=== PATIENT | male | born 1950 | race Caucasian/White ===

== ENCOUNTER → 2016-06-30 | Outpatient (REF) | payer MEDICARE ==
[~2016-06-30] MED LIST: ACET65TA; ALBU83IN INH; BABY81CH; COMBAER6 INH; COMBVENT INH; COUM1TAB PO; COUM2TAB10 PO; CYCLOBENZAPRINE PO; DUONSOL INH; EQUATE FIBER PO; LEVA500T; TESS200C; WARF10TA15 PO; XARE15TA PO
== END ==
LOC: M LAB REF 16:36
PROVIDERS: ATTEND Internal Medicine
DX: N39.0 Urinary tract infection, site not specified (principal)

== ENCOUNTER → 2016-07-17 | Outpatient (REF) | payer MEDICARE | LOC: M LAB REF 13:13 | PROVIDERS: ATTEND Internal Medicine | DX: R35.1 Nocturia (principal) ==

== ENCOUNTER → 2016-07-27 | Outpatient (CLI) | payer MEDICARE ==
--- NOTE | 2016-07-27 13:46 | REP ---
PA and lateral chest: Comparisons are the plain film PA and lateral views of 07/06/2015 and 02/14/[address] of 12/29/2011. There is chronic right upper lobe collapse. 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 The remainder of the lung crawford are clear and unchanged. Cardiac size is normal. The conor, mediastinum, and bony thorax are unremarkable otherwise. Impression: No significant interval change. Chronic collapse of the right upper lobe. Otherwise, negative PA and lateral chest. Signed by Ed Nuñez MD 07/27/2016 01:38 P
== END ==
LOC: M SMT 13:14
PROVIDERS: ATTEND Internal Medicine Pulmonary Disease
DX: E85.1 Neuropathic heredofamilial amyloidosis (principal)

== ENCOUNTER → 2018-01-09 | Outpatient (REF) | payer MEDICARE | LOC: M LAB REF 13:15 | DX: R05 Cough (principal) | CPT/HCPCS: 87205 ==

== ENCOUNTER → 2018-01-16 | Outpatient (CLI) | payer MEDICARE | LOC: M SLEEP 19:30 | DX: G47.33 Obstructive sleep apnea (adult) (pediatric) (principal) | CPT/HCPCS: 95811 ==

== ENCOUNTER 2019-03-10 15:29 | Emergency (ER) | payer MEDICARE ==
[~2019-03-10] VITALS: Ht 185.4 cm; Wt 93.8 kg
[~2019-03-10 15:29] MED LIST changes: -COUM2TAB10 PO; +COUM2TAB22 PO
[2019-03-10 17:24] LABS: BASO % 0.3 % (0.0-1.0); EOS # 0.1 10^3/uL (0.0-0.5); EOS % 2.1 % (0.0-3.0); HEMATOCRIT 43.4 % (42.0-52.0); HEMOGLOBIN 13.4 g/dl (13.5-17.5); LYMPH # 0.4 10^3/uL (1.5-5.0); LYMPH % 6.4 % (24.0-44.0); MEAN CORPUSCULAR HEMOGLOBIN 29.5 pg (27.0-33.0); MEAN CORPUSCULAR HGB CONC 30.9 g/dl (32.0-36.5); MEAN CORPUSCULAR VOLUME 95.6 fl (80.0-96.0); MONO # 0.7 10^3/uL (0.0-0.8); MONO % 10.9 % (0.0-5.0); NEUTROPHILS # 5.4 10^3/uL (1.5-8.5); PLATELET COUNT, AUTOMATED 177 10^3/uL (150-450); RED BLOOD COUNT 4.54 10^6/uL (4.30-6.10); WHITE BLOOD COUNT 6.7 10^3/uL (4.0-10.0)
[2019-03-10 17:46] LABS: ALBUMIN 4.1 GM/DL (3.2-5.2); BILIRUBIN,DIRECT 0.4 MG/DL (0.0-0.2); BILIRUBIN,TOTAL 1.5 MG/DL (0.2-1.0); TOTAL PROTEIN 7.4 GM/DL (6.4-8.2)
[2019-03-10] MEDS ORDERED: IPRA0.00 (19:53)
[2019-03-10] MEDS ORDERED: PROAAER10 (19:53)
[2019-03-10] MEDS ORDERED: TAMS1CAP17 PO (19:53)
[2019-03-10] MEDS ORDERED: MIRA3350 PO (19:53)
[2019-03-10] MEDS ORDERED: CVS1CAP2 PO (19:53)
[2019-03-10] MEDS ORDERED: [UNRECOGNIZED DRUG - CODE] PO (19:54)
--- NOTE | 2019-03-10 23:07 | REPVR ---
PROCEDURE INFORMATION: Exam: CT Abdomen And Pelvis Without Contrast Exam date and time: 03/10/2019 9:45 PM Age: 68 years old Clinical indication: Abdominal pain; Generalized; Additional info: Right flank/abd pain; R/O stone TECHNIQUE: Imaging protocol: Computed tomography of the abdomen and pelvis without contrast. Radiation optimization: All CT scans at this facility use at least one of these dose optimization techniques: automated exposure control; mA and/or kV adjustment per patient size (includes targeted exams where dose is matched to clinical indication); or iterative reconstruction. COMPARISON: No relevant prior studies available. FINDINGS: Limitations: Study is limited by the absence of contrast. Liver: Right hepatic lobe 1.4 cm cyst. Small, less than 5 mm, liver hypodensity. Highly likely to be benign and does not require follow-up imaging or biopsy per ACR. Gallbladder and bile ducts: Normal. No calcified stones. No ductal dilation. Pancreas: Normal. No ductal dilation. Spleen: Normal. No splenomegaly. Adrenals: Normal. No mass. Kidneys and ureters: Moderate bilateral hydroureter and hydronephrosis, likely from reflux given the bladder distension. Along the course of the left ureter there is a lobulated fluid density lesion measuring 4.2 x 4 x 5.5 cm. 2.7 cm right renal cyst. Stomach and bowel: Excess stool in the colon and gas and distention of the small bowel. Appendix: No evidence of appendicitis. Intraperitoneal space: Unremarkable. No free air. No significant fluid collection. Vasculature: Unremarkable. No abdominal aortic aneurysm. Lymph nodes: Potentially a cyst, ureteral outpouching, or even lymphocele. Recommend further evaluation, significance uncertain. Bladder: Bladder distention with mild adjacent stranding, correlate with urinalysis. Reproductive: 6.9 cm, enlarged prostate gland indenting the bladder. Bones/joints: Unremarkable. No acute fracture. Soft tissues: Moderate fat protruding right inguinal hernia. Other findings: Minimal stranding in the pelvis. IMPRESSION: 1. Bladder distention with mild adjacent stranding, correlate with urinalysis. 2. Moderate bilateral hydroureter and hydronephrosis, likely from reflux given the bladder distension. 3. Along the course of the left ureter there is a lobulated fluid density lesion measuring 4.2 x 4 x 5.5 cm. Potentially a cyst, ureteral outpouching, or even lymphocele. Recommend further evaluation, significance uncertain. 4. Excess stool in the colon and gas and distention of the small bowel. Family noticed in terms of herself and her own identity Electronically signed by: Yvon Bowen On 03/10/2019 23:07:36 PM
[2019-03-11] MEDS ORDERED: LIDOCAINE 2% 5ML JELLY UROJET TOP ONE
[2019-03-11 00:18] VITALS: BP 179/84
--- NOTE | 2019-03-11 08:43 | ED PDOC ---
Post-Departure Follow-Up dr magaña faxed formal report of ct abd/p for fu Chelly Killian MD Mar 11, 2019 08:43
== END 2019-03-11 01:03 | disposition home or self-care (01) ==
LOC: M ED 15:29
DX: K59.00 Constipation, unspecified (principal); R33.9 Retention of urine, unspecified; N13.30 Unspecified hydronephrosis; N28.89 Other specified disorders of kidney and ureter; R68.83 Chills (without fever); Z86.718 Personal history of other venous thrombosis and embolism; Z87.09 Personal history of other diseases of the respiratory system; Z91.041 Radiographic dye allergy status; Z79.51 Long term (current) use of inhaled steroids; Z79.899 Other long term (current) drug therapy

== ENCOUNTER → 2019-04-09 | Outpatient (CLI) | payer MEDICARE ==
[~2019-04-09] MED LIST changes: +CVS1CAP2 PO; +IPRA0.00; +MIRA3350 PO; +PROAAER10; +TAMS1CAP17 PO; +[UNRECOGNIZED DRUG - CODE] PO
[2019-04-09 12:18] LABS: BLOOD UREA NITROGEN 19 MG/DL (7-18); CALCIUM LEVEL 9.5 MG/DL (8.8-10.2); CARBON DIOXIDE LEVEL 29 MEQ/L (21-32); CHLORIDE LEVEL 107 MEQ/L (98-107); CREATININE FOR GFR 0.77 MG/DL (0.70-1.30); GLOMERULAR FILTRATION RATE > 60.0 (>49); GLUCOSE, FASTING 86 MG/DL (70-100); POTASSIUM SERUM 3.8 MEQ/L (3.5-5.1); SODIUM LEVEL 141 MEQ/L (136-145)
== END ==
LOC: M LAB 11:15
PROVIDERS: ATTEND Nurse Practitioner Family
DX: N28.89 Other specified disorders of kidney and ureter (principal)

== ENCOUNTER → 2019-08-14 | Outpatient (CLI) | payer MEDICARE ==
--- NOTE | 2019-08-14 13:35 | REP ---
Clinical: Familial amyloidosis. Technique: PA and lateral. Comparison: 01/07/2018, 07/30/2017. Findings: The mediastinum and cardiac silhouette including the abnormal round contour along the right side of the mediastinum remains stable. Lung crawford are clear. No focal consolidation, effusion, or pneumothorax. Skeletal structures are intact. Impression: Stable chest x-ray. No acute cardiopulmonary process appreciated. Electronically Signed by Fer Rees MD 08/14/2019 01:26 P
== END ==
LOC: M RAD 13:08
PROVIDERS: ATTEND Internal Medicine Pulmonary Disease
DX: E85.1 Neuropathic heredofamilial amyloidosis (principal)

== ENCOUNTER 2020-08-21 14:42 | Emergency (ER) | payer MEDICARE ==
[~2020-08-21] VITALS: Ht 185.4 cm; Wt 88.9 kg
[2020-08-21 14:43] VITALS: BP 156/72
--- NOTE | 2020-08-21 15:11 | REP ---
INDICATION: Head injury COMPARISON: 07/17/2012 TECHNIQUE: Axial noncontrast images from the skull base to the vertex with coronal reformations. This CT examination was performed using the following dose reduction techniques: Automated exposure control, adjustment of mA and/or kv according to the patient's size, and use of iterative reconstruction technique. FINDINGS: The ventricles, sulci, and cisterns are normal in position and appearance. Kurtz-white differentiation is maintained. No acute intracranial hemorrhage, mass/mass effect, pathology or trauma/injury. No evidence for acute infarction. No extra-axial fluid collection. Calvarium is intact. High density material fills the visualized left maxillary sinus. IMPRESSION: 1. No evidence for acute intracranial pathology or trauma/injury. 2. High density material within the visualized left maxillary sinus is nonspecific. Differential diagnosis includes but is not limited to fungal sinus disease and hemorrhage related to occult injury. The visualized adjacent osseous structures appear intact. <Electronically signed by Fer Rees > 08/21/20 [id number]
--- NOTE | 2020-08-22 07:31 | ED PDOC ---
Post-Departure Follow-Up radiology report faxed to Angelina Valencia MD Aug 22, 2020 07:31
== END 2020-08-21 17:01 | disposition home or self-care (01) ==
LOC: M ED 14:42
DX: S00.03XA Contusion of scalp, initial encounter (principal); W21.04XA Struck by golf ball, initial encounter; Y92.9 Unspecified place or not applicable; Y93.53 Activity, golf; Y99.9 Unspecified external cause status

== ENCOUNTER → 2020-08-23 | Outpatient (CLI) | payer MEDICARE ==
--- NOTE | 2020-08-23 15:33 | REP ---
INDICATION: ORGAN LIMITED AMYLOIDOSIS. COMPARISON: Multiple latest 08/14/2019 TECHNIQUE: PA and lateral FINDINGS: Cardiomediastinal silhouette lung crawford are unchanged. Right paratracheal calcifications status quo. Right low-density paratracheal fullness status quo for many years. No acute patchy parenchymal opacities or pleural effusions have developed there is no change in the osseous structures. IMPRESSION: Stable appearing chronic changes <Electronically signed by Stephen Hoff > 08/23/20 [id number]
== END ==
LOC: M WUC 15:04
PROVIDERS: ATTEND Internal Medicine Pulmonary Disease
DX: E85.4 Organ-limited amyloidosis (principal)

== ENCOUNTER → 2021-08-29 | Outpatient (CLI) | payer MEDICARE ==
[~2021-08-29] MED LIST changes: +ALBU2.5V10 INH; -ALBU83IN INH
== END ==
LOC: M WUC 15:15
PROVIDERS: ATTEND Internal Medicine Pulmonary Disease
DX: E85.4 Organ-limited amyloidosis (principal); J98.11 Atelectasis

== ENCOUNTER 2022-06-23 20:44 | Emergency (ER) | payer MEDICARE ==
[~2022-06-23] VITALS: Ht 185.4 cm; Wt 90.4 kg
[2022-06-23 22:02] LABS: BASO # 0.1 10^3/uL (0.0-0.2); BASO % 0.6 % (0.0-1.0); EOS # 0.1 10^3/uL (0.0-0.5); HEMATOCRIT 37.5 % (42.0-52.0); HEMOGLOBIN 12.1 g/dl (13.5-17.5); LYMPH # 0.7 10^3/uL (1.5-5.0); LYMPH % 7.6 % (24.0-44.0); MEAN CORPUSCULAR HGB CONC 32.3 g/dl (32.0-36.5); MEAN CORPUSCULAR VOLUME 93.1 fl (80.0-96.0); MONO # 0.7 10^3/uL (0.0-0.8); NEUTROPHILS # 7.2 10^3/uL (1.5-8.5); NEUTROPHILS % 82.6 % (36.0-66.0); PLATELET COUNT, AUTOMATED 201 10^3/uL (150-450); RED BLOOD COUNT 4.03 10^6/uL (4.30-6.10); WHITE BLOOD COUNT 8.7 10^3/uL (4.0-10.0)
[2022-06-23 22:12] LABS: INR 1.18; PROTHROMBIN TIME 15.3 SECONDS (12.5-14.5)
[2022-06-23 22:13] LABS: PARTIAL THROMBOPLASTIN TIME 29.6 SECONDS (24.8-34.2)
[2022-06-23] MEDS ORDERED: LIDOCAINE 2% 5ML JELLY UROJET TOP ONE (23:45)
[2022-06-24 00:07] LABS: LIPASE 25 U/L (12-53)
[2022-06-24 00:10] LABS: ALBUMIN 3.8 G/DL (3.2-5.2); ALKALINE PHOSPHATASE 70 U/L (46-116); ALT/SGPT 26 U/L (7.0-40); AST/SGOT 23 U/L (<34); BILIRUBIN,DIRECT 0.4 MG/DL (<0.4); BILIRUBIN,TOTAL 1.1 MG/DL (0.3-1.2); BLOOD UREA NITROGEN 18 MG/DL (9-23); CALCIUM LEVEL 9.1 MG/DL (8.3-10.6); CARBON DIOXIDE LEVEL 26 MMOL/L (20-31); CHLORIDE LEVEL 97 MMOL/L (98-107); CREATININE FOR GFR 0.69 MG/DL (0.70-1.30); GLOMERULAR FILTRATION RATE > 60.0 (>49); GLUCOSE, FASTING 124 MG/DL (74-106); POTASSIUM SERUM 3.9 MMOL/L (3.5-5.1); SODIUM LEVEL 129 MMOL/L (136-145); TOTAL PROTEIN 7.3 G/DL (5.7-8.2)
[2022-06-24 02:00] VITALS: BP 134/65
== END 2022-06-24 02:23 | disposition home or self-care (01) ==
LOC: M ED 20:44
DX: T83.091A Other mechanical complication of indwelling urethral catheter, initial encounter (principal); R33.9 Retention of urine, unspecified; R31.9 Hematuria, unspecified; K58.9 Irritable bowel syndrome, unspecified; Z86.718 Personal history of other venous thrombosis and embolism; Z91.041 Radiographic dye allergy status; Z79.52 Long term (current) use of systemic steroids; Z79.899 Other long term (current) drug therapy

== ENCOUNTER → 2022-09-05 | Outpatient (CLI) | payer MEDICARE | LOC: M WUC 10:12 | PROVIDERS: ATTEND Internal Medicine Pulmonary Disease | DX: E85.4 Organ-limited amyloidosis (principal); J98.11 Atelectasis ==

== ENCOUNTER 2022-11-12 13:16 | Emergency (ER) | payer MEDICARE ==
[~2022-11-12] VITALS: Ht 185.4 cm; Wt 88.0 kg
[2022-11-12] MEDS ORDERED: ALBU8.5H (13:32)
[2022-11-12] MEDS ORDERED: LIDOCAINE 2% 5ML JELLY UROJET TOP ONE (14:50)
[2022-11-12] MEDS ORDERED: CIPR-249 PO (16:14)
[2022-11-12] MEDS ORDERED: CIPROFLOXACIN 500MG TABLET PO ONE (16:15)
[2022-11-12 16:20] VITALS: BP 128/61; TEMP 97.6; O2SAT 94
== END 2022-11-12 16:56 | disposition home or self-care (01) ==
LOC: M ED 13:16
DX: T83.091A Other mechanical complication of indwelling urethral catheter, initial encounter (principal); N39.0 Urinary tract infection, site not specified; K58.9 Irritable bowel syndrome, unspecified; Z91.041 Radiographic dye allergy status; Z79.01 Long term (current) use of anticoagulants; Z79.2 Long term (current) use of antibiotics; Z79.52 Long term (current) use of systemic steroids; Z79.899 Other long term (current) drug therapy

== ENCOUNTER 2022-12-19 12:12 | Emergency (ER) | payer MEDICARE ==
[~2022-12-19] VITALS: Ht 185.4 cm; Wt 85.6 kg
[~2022-12-19 12:12] MED LIST changes: +ALBU8.5H; +CIPR-249 PO
[2022-12-19] MEDS ORDERED: LIDOCAINE 2% 5ML JELLY UROJET TOP ONE (15:40)
[2022-12-19 16:57] VITALS: BP 135/66; TEMP 97.6; O2SAT 96
[2022-12-19] MEDS ORDERED: LEVO1TAB40 PO (17:00)
== END 2022-12-19 17:15 | disposition home or self-care (01) ==
LOC: M ED 12:12
DX: T83.091A Other mechanical complication of indwelling urethral catheter, initial encounter (principal); N39.0 Urinary tract infection, site not specified; Z79.52 Long term (current) use of systemic steroids; Z79.2 Long term (current) use of antibiotics; Z79.83 Long term (current) use of bisphosphonates; Z79.899 Other long term (current) drug therapy; Z91.041 Radiographic dye allergy status

== ENCOUNTER 2023-02-11 19:52 | Emergency (ER) | payer MEDICARE ==
[~2023-02-11] VITALS: Ht 186.1 cm; Wt 86.5 kg
[~2023-02-11 19:52] MED LIST changes: +LEVO1TAB40 PO
[2023-02-11] MEDS ORDERED: DUTASTERIDE (20:03)
[2023-02-11 22:23] VITALS: BP 143/83; TEMP 98.3; O2SAT 98
== END 2023-02-11 22:24 | disposition home or self-care (01) ==
LOC: M ED 19:52
DX: T83.091A Other mechanical complication of indwelling urethral catheter, initial encounter (principal); N40.0 Benign prostatic hyperplasia without lower urinary tract symptoms; Z91.041 Radiographic dye allergy status; Z79.52 Long term (current) use of systemic steroids; Z79.899 Other long term (current) drug therapy

== ENCOUNTER 2023-02-26 14:56 | Emergency (ER) | payer MEDICARE ==
[~2023-02-26] VITALS: Ht 185.4 cm; Wt 86.0 kg
[~2023-02-26 14:56] MED LIST changes: +DUTASTERIDE
[2023-02-26] MEDS ORDERED: DUTASTERIDE (15:16)
[2023-02-26] MEDS ORDERED: IPRATROPIUM 0.5MG/ALBUTEROL 2.5MG INH SOL UD 3ML (DUONEB) NEB ONE (17:50)
[2023-02-26 18:40] LABS: BASO # 0.1 10^3/uL (0.0-0.2); EOS # 0.2 10^3/uL (0.0-0.5); EOS % 3.1 % (0.0-3.0); HEMATOCRIT 40.3 % (42.0-52.0); HEMOGLOBIN 12.5 g/dl (13.5-17.5); LYMPH # 0.9 10^3/uL (1.5-5.0); LYMPH % 15.4 % (24.0-44.0); MEAN CORPUSCULAR VOLUME 96.6 fl (80.0-96.0); MONO # 0.5 10^3/uL (0.0-0.8); MONO % 7.5 % (2.0-8.0); NEUTROPHILS # 4.4 10^3/uL (1.5-8.5); NEUTROPHILS % 72.8 % (36.0-66.0); PLATELET COUNT, AUTOMATED 233 10^3/uL (150-450); RED BLOOD COUNT 4.17 10^6/uL (4.30-6.10)
[2023-02-26 19:13] LABS: BLOOD UREA NITROGEN 20 MG/DL (9-23); CALCIUM LEVEL 9.1 MG/DL (8.3-10.6); CARBON DIOXIDE LEVEL 26 MMOL/L (20-31); CHLORIDE LEVEL 108 MMOL/L (98-107); CREATININE FOR GFR 0.66 MG/DL (0.70-1.30); GLOMERULAR FILTRATION RATE > 60.0 (>42); GLUCOSE, FASTING 91 MG/DL (74-106); POTASSIUM SERUM 4.4 MMOL/L (3.5-5.1); SODIUM LEVEL 140 MMOL/L (136-145)
[2023-02-26] MEDS ORDERED: LIDOCAINE 2% 5ML JELLY UROJET TOP ONE (19:40)
[2023-02-26 21:11] VITALS: BP 156/72; TEMP 98.4; O2SAT 97
[2023-02-26 21:51] LABS: RSV AMPLIFICATION NEGATIVE (NEGATIVE)
== END 2023-02-26 21:09 | disposition home or self-care (01) ==
LOC: M ED 14:56
DX: T83.091A Other mechanical complication of indwelling urethral catheter, initial encounter (principal); E85.9 Amyloidosis, unspecified; K58.9 Irritable bowel syndrome, unspecified; Z91.041 Radiographic dye allergy status; Z86.718 Personal history of other venous thrombosis and embolism; Z79.52 Long term (current) use of systemic steroids; Z79.01 Long term (current) use of anticoagulants; Z79.899 Other long term (current) drug therapy

== ENCOUNTER 2023-03-24 20:07 | Emergency (ER) | payer MEDICARE ==
[~2023-03-24] VITALS: Ht 185.4 cm; Wt 85.4 kg
[2023-03-24] MEDS: LIDOCAINE 2% 5ML JELLY UROJET TOP ONE (21:33)
[2023-03-25] MEDS ORDERED: CEFU50TA PO (01:09)
[2023-03-25 01:16] VITALS: BP 142/73; TEMP 97.6; O2SAT 96
[2023-03-25] MEDS: CEFUROXIME 500 MG TAB PO ONE (01:54)
== END 2023-03-25 01:54 | disposition home or self-care (01) ==
LOC: M ED 20:07
DX: T83.091A Other mechanical complication of indwelling urethral catheter, initial encounter (principal); N39.0 Urinary tract infection, site not specified; K58.9 Irritable bowel syndrome, unspecified; R55 Syncope and collapse; Z86.718 Personal history of other venous thrombosis and embolism; Z91.041 Radiographic dye allergy status; Z79.52 Long term (current) use of systemic steroids; Z79.83 Long term (current) use of bisphosphonates; Z79.899 Other long term (current) drug therapy

== ENCOUNTER → 2023-04-02 | Outpatient (CLI) | payer MEDICARE ==
[~2023-04-02] MED LIST changes: +CEFU50TA PO
== END ==
LOC: M WUC 14:45
PROVIDERS: ATTEND Internal Medicine Pulmonary Disease
DX: E85.4 Organ-limited amyloidosis (principal)

== ENCOUNTER 2023-04-03 15:02 | Emergency (ER) | payer MEDICARE ==
[~2023-04-03] VITALS: Ht 185.4 cm; Wt 84.7 kg
[2023-04-03] MEDS: NS 1,000 ML IV ONE (17:52)
[2023-04-03 18:14] LABS: BASO # 0.1 10^3/uL (0.0-0.2); BASO % 1.2 % (0.0-1.0); EOS # 0.2 10^3/uL (0.0-0.5); HEMATOCRIT 38.6 % (42.0-52.0); HEMOGLOBIN 11.8 g/dl (13.5-17.5); LYMPH # 0.7 10^3/uL (1.5-5.0); LYMPH % 15.8 % (24.0-44.0); MEAN CORPUSCULAR HEMOGLOBIN 29.5 pg (27.0-33.0); MEAN CORPUSCULAR HGB CONC 30.6 g/dl (32.0-36.5); MEAN CORPUSCULAR VOLUME 96.5 fl (80.0-96.0); MONO # 0.3 10^3/uL (0.0-0.8); NEUTROPHILS % 70.5 % (36.0-66.0); PLATELET COUNT, AUTOMATED 179 10^3/uL (150-450); WHITE BLOOD COUNT 4.3 10^3/uL (4.0-10.0)
[2023-04-03 18:26] LABS: INR 1.44
[2023-04-03 18:27] LABS: PARTIAL THROMBOPLASTIN TIME 30.9 SECONDS (24.8-34.2)
[2023-04-03 18:38] LABS: BLOOD UREA NITROGEN 17 MG/DL (9-23); CALCIUM LEVEL 9.2 MG/DL (8.3-10.6); CARBON DIOXIDE LEVEL 28 MMOL/L (20-31); CHLORIDE LEVEL 105 MMOL/L (98-107); CREATININE FOR GFR 0.63 MG/DL (0.70-1.30); GLOMERULAR FILTRATION RATE > 60.0 (>42); GLUCOSE, FASTING 82 MG/DL (74-106); POTASSIUM SERUM 4.3 MMOL/L (3.5-5.1); SODIUM LEVEL 140 MMOL/L (136-145)
[2023-04-03 19:21] LABS: APPEARANCE, URINE CLEAR (CLEAR); BACTERIA, URINE AUTO 1+ (NEGATIVE); BILIRUBIN, URINE AUTO NEGATIVE (NEGATIVE); BLOOD, URINE BLOOD 3+ (NEGATIVE); CALCIUM OXALATE CRYSTALS SMALL; COLOR, URINE STRAW (YELLOW); GLUCOSE, URINE (UA) AUTO NEGATIVE (NEGATIVE); KETONE, URINE AUTO NEGATIVE (NEGATIVE); LEUKOCYTE ESTERASE, URINE AUTO 2+ (NEGATIVE); NITRITE, URINE AUTO NEGATIVE (NEGATIVE); PROTEIN, URINE AUTO NEGATIVE (NEGATIVE); RBC, URINE AUTO TNTC /HPF (0-3); SPECIFIC GRAVITY URINE AUTO 1.004 (1.002-1.035); SQUAMOUS EPITHELIAL CELL UR AU 0 /HPF (0-6); UROBILINOGEN, URINE AUTO 0.2 mg/dL (0.0-2.0); WBC, URINE AUTO 40 /HPF (0-3)
[2023-04-03 19:40] VITALS: BP 145/67; TEMP 97.4; O2SAT 97
== END 2023-04-03 19:46 | disposition home or self-care (01) ==
LOC: M ED 15:02
DX: R31.0 Gross hematuria (principal); D68.32 Hemorrhagic disorder due to extrinsic circulating anticoagulants; Z96.0 Presence of urogenital implants; Z91.041 Radiographic dye allergy status; Z86.718 Personal history of other venous thrombosis and embolism; Z79.52 Long term (current) use of systemic steroids; Z79.899 Other long term (current) drug therapy

== ENCOUNTER → 2023-04-19 | Outpatient (CLI) | payer MEDICARE | LOC: M RAD 12:20 | PROVIDERS: ATTEND Internal Medicine Pulmonary Disease | DX: E85.4 Organ-limited amyloidosis (principal) ==

== ENCOUNTER 2023-05-08 18:09 | Emergency (ER) | payer MEDICARE ==
[~2023-05-08] VITALS: Ht 185.4 cm; Wt 80.0 kg
[2023-05-08] MEDS ORDERED: SULF1TAB23 PO (22:33)
[2023-05-08 23:27] VITALS: BP 125/65; TEMP 96.7; O2SAT 97
== END 2023-05-08 23:33 | disposition home or self-care (01) ==
LOC: M ED 18:09
DX: T83.091A Other mechanical complication of indwelling urethral catheter, initial encounter (principal); N39.0 Urinary tract infection, site not specified; N40.0 Benign prostatic hyperplasia without lower urinary tract symptoms; E85.9 Amyloidosis, unspecified; Z91.041 Radiographic dye allergy status; Z79.52 Long term (current) use of systemic steroids; Z79.899 Other long term (current) drug therapy; Z79.2 Long term (current) use of antibiotics

== ENCOUNTER → 2023-05-28 | Outpatient (CLI) | payer MEDICARE ==
[~2023-05-28] MED LIST changes: +SULF1TAB23 PO
== END ==
LOC: M PLARAD 07:33
PROVIDERS: ATTEND Internal Medicine Pulmonary Disease
DX: R91.8 Other nonspecific abnormal finding of lung field (principal)
CPT/HCPCS: 78815; A9552

== ENCOUNTER 2023-05-30 20:29 | Emergency (ER) | payer MEDICARE ==
[~2023-05-30] VITALS: Ht 185.4 cm; Wt 84.1 kg
[2023-05-30 21:55] LABS: BASO % 0.5 % (0.0-1.0); EOS # 0.1 10^3/uL (0.0-0.5); EOS % 1.7 % (0.0-3.0); HEMOGLOBIN 12.3 g/dl (13.5-17.5); LYMPH # 0.4 10^3/uL (1.5-5.0); LYMPH % 5.8 % (24.0-44.0); MEAN CORPUSCULAR HEMOGLOBIN 29.4 pg (27.0-33.0); MEAN CORPUSCULAR HGB CONC 31.5 g/dl (32.0-36.5); MEAN CORPUSCULAR VOLUME 93.1 fl (80.0-96.0); MONO # 0.7 10^3/uL (0.0-0.8); MONO % 8.8 % (2.0-8.0); NEUTROPHILS # 6.3 10^3/uL (1.5-8.5); NEUTROPHILS % 83.1 % (36.0-66.0); PLATELET COUNT, AUTOMATED 212 10^3/uL (150-450); RED BLOOD COUNT 4.19 10^6/uL (4.30-6.10); WHITE BLOOD COUNT 7.5 10^3/uL (4.0-10.0)
[2023-05-30 22:01] LABS: LIPASE 28 U/L (12-53)
[2023-05-30 22:03] LABS: ALBUMIN 3.4 G/DL (3.2-5.2); ALKALINE PHOSPHATASE 63 U/L (46-116); ALT/SGPT 20 U/L (7.0-40); AST/SGOT 18 U/L (<34); BILIRUBIN,DIRECT 0.3 MG/DL (<0.4); BILIRUBIN,TOTAL 0.9 MG/DL (0.3-1.2); BLOOD UREA NITROGEN 25 MG/DL (9-23); CARBON DIOXIDE LEVEL 23 MMOL/L (20-31); CHLORIDE LEVEL 102 MMOL/L (98-107); CREATININE FOR GFR 0.65 MG/DL (0.70-1.30); GLOMERULAR FILTRATION RATE > 60.0 (>42); GLUCOSE, FASTING 112 MG/DL (74-106); POTASSIUM SERUM 4.1 MMOL/L (3.5-5.1); SODIUM LEVEL 134 MMOL/L (136-145); TOTAL PROTEIN 7.2 G/DL (5.7-8.2)
[2023-05-30] MEDS ORDERED: LEVO1TAB40 PO (22:26)
[2023-05-30] MEDS: LevoFLOXacin 750 MG TABLET PO ONE (22:32)
[2023-05-30 22:39] VITALS: BP 137/89; TEMP 97.5; O2SAT 97
== END 2023-05-30 22:47 | disposition home or self-care (01) ==
LOC: M ED 20:29
DX: N39.0 Urinary tract infection, site not specified (principal); T83.091A Other mechanical complication of indwelling urethral catheter, initial encounter; Z91.041 Radiographic dye allergy status; Z79.51 Long term (current) use of inhaled steroids; Z79.899 Other long term (current) drug therapy

== ENCOUNTER 2023-06-28 19:40 | Emergency (ER) | payer MEDICARE ==
[~2023-06-28] VITALS: Ht 185.4 cm; Wt 83.5 kg
[2023-06-29] MEDS: LIDOCAINE 2% 5ML JELLY UROJET TOP PRN (02:15)
[2023-06-29 07:21] VITALS: BP 139/84; TEMP 97.9; O2SAT 99
== END 2023-06-29 07:24 | disposition home or self-care (01) ==
LOC: M ED 19:40
DX: T83.091A Other mechanical complication of indwelling urethral catheter, initial encounter (principal); E85.9 Amyloidosis, unspecified; Z91.041 Radiographic dye allergy status; Z79.52 Long term (current) use of systemic steroids; Z79.899 Other long term (current) drug therapy

== ENCOUNTER 2023-08-06 19:11 | Emergency (ER) | payer MEDICARE ==
[~2023-08-06] VITALS: Ht 185.4 cm; Wt 84.3 kg
[2023-08-07] MEDS: LIDOCAINE 2% 5ML JELLY UROJET TOP ONE (01:15)
[2023-08-07 02:02] LABS: BASO # 0.1 10^3/uL (0.0-0.2); EOS # 0.2 10^3/uL (0.0-0.5); EOS % 3.9 % (0.0-3.0); HEMATOCRIT 41.1 % (42.0-52.0); HEMOGLOBIN 12.7 g/dl (13.5-17.5); LYMPH # 1.5 10^3/uL (1.5-5.0); LYMPH % 28.5 % (24.0-44.0); MEAN CORPUSCULAR HEMOGLOBIN 29.6 pg (27.0-33.0); MEAN CORPUSCULAR HGB CONC 30.9 g/dl (32.0-36.5); MEAN CORPUSCULAR VOLUME 95.8 fl (80.0-96.0); MONO # 0.6 10^3/uL (0.0-0.8); MONO % 11.4 % (2.0-8.0); NEUTROPHILS # 2.8 10^3/uL (1.5-8.5); NEUTROPHILS % 55.2 % (36.0-66.0); PLATELET COUNT, AUTOMATED 206 10^3/uL (150-450); RED BLOOD COUNT 4.29 10^6/uL (4.30-6.10); WHITE BLOOD COUNT 5.1 10^3/uL (4.0-10.0)
[2023-08-07 02:40] LABS: ALBUMIN 3.9 G/DL (3.2-5.2); ALKALINE PHOSPHATASE 76 U/L (46-116); ALT/SGPT 25 U/L (7.0-40); AST/SGOT 19 U/L (<34); BILIRUBIN,TOTAL 0.7 MG/DL (0.3-1.2); BLOOD UREA NITROGEN 20 MG/DL (9-23); CALCIUM LEVEL 9.5 MG/DL (8.3-10.6); CARBON DIOXIDE LEVEL 26 MMOL/L (20-31); CHLORIDE LEVEL 108 MMOL/L (98-107); CREATININE FOR GFR 0.68 MG/DL (0.70-1.30); GLOMERULAR FILTRATION RATE > 60.0 (>42); GLUCOSE, FASTING 96 MG/DL (74-106); POTASSIUM SERUM 4.1 MMOL/L (3.5-5.1); SODIUM LEVEL 138 MMOL/L (136-145); TOTAL PROTEIN 7.8 G/DL (5.7-8.2)
[2023-08-07] MEDS ORDERED: cefTRIAXone SOD 1 GM in D5W MINI-BAG PLUS 50 ML IV ONE (03:00)
[2023-08-07] MEDS: cefTRIAXone SOD 1GM VIAL IM ONE (03:28)
[2023-08-07] MEDS: LIDOCAINE 1% SDV 5ML VIAL DILUENT ONE (03:28)
[2023-08-07] MEDS ORDERED: CEPH500C PO (03:31)
[2023-08-07 03:45] VITALS: BP 127/70; TEMP 97.3; O2SAT 98
== END 2023-08-07 03:50 | disposition home or self-care (01) ==
LOC: M ED 19:11
DX: T83.098A Other mechanical complication of other urinary catheter, initial encounter (principal); N39.0 Urinary tract infection, site not specified; Z79.2 Long term (current) use of antibiotics; Z79.52 Long term (current) use of systemic steroids; Z79.899 Other long term (current) drug therapy; Z91.041 Radiographic dye allergy status
CPT/HCPCS: 51703; 80053; 81001; 85025; 87088; 87186; 96372; 99284; J0696

== ENCOUNTER 2023-09-15 17:37 | Emergency (ER) | payer MEDICARE ==
[~2023-09-15] VITALS: Ht 185.4 cm; Wt 85.4 kg
[~2023-09-15 17:37] MED LIST changes: +CEPH500C PO
[2023-09-15 17:38] VITALS: BP 145/79; TEMP 98.5; O2SAT 98
== END 2023-09-15 18:50 | disposition home or self-care (01) ==
LOC: M ED 17:37
DX: T83.098A Other mechanical complication of other urinary catheter, initial encounter (principal); K58.9 Irritable bowel syndrome, unspecified; E85.9 Amyloidosis, unspecified; Z91.041 Radiographic dye allergy status; Z79.52 Long term (current) use of systemic steroids; Z79.899 Other long term (current) drug therapy; Z86.718 Personal history of other venous thrombosis and embolism

== ENCOUNTER 2023-11-06 09:43 | Emergency (ER) | payer MEDICARE ==
[~2023-11-06] VITALS: Ht 185.4 cm; Wt 86.6 kg
[2023-11-06 12:40] VITALS: BP 145/75; TEMP 97.9; O2SAT 97
== END 2023-11-06 12:43 | disposition home or self-care (01) ==
LOC: M ED 09:43
DX: T83.011A Breakdown (mechanical) of indwelling urethral catheter, initial encounter (principal); N40.1 Benign prostatic hyperplasia with lower urinary tract symptoms; K58.9 Irritable bowel syndrome, unspecified; E85.9 Amyloidosis, unspecified; Z91.040 Latex allergy status; Z86.73 Personal history of transient ischemic attack (TIA), and cerebral infarction without residual deficits; Z79.52 Long term (current) use of systemic steroids; Z79.899 Other long term (current) drug therapy

== ENCOUNTER 2023-11-08 12:40 | Emergency (ER) | payer MEDICARE ==
[~2023-11-08] VITALS: Ht 185.4 cm; Wt 84.4 kg
[2023-11-08] MEDS: LIDOCAINE 2% 5ML JELLY UROJET TOP ONE (15:42)
[2023-11-08 17:31] LABS: BASO % 0.5 % (0.0-1.0); EOS # 0.1 10^3/uL (0.0-0.5); EOS % 1.2 % (0.0-3.0); HEMATOCRIT 39.4 % (42.0-52.0); HEMOGLOBIN 12.5 g/dl (13.5-17.5); LYMPH # 0.5 10^3/uL (1.5-5.0); MEAN CORPUSCULAR HGB CONC 31.7 g/dl (32.0-36.5); MEAN CORPUSCULAR VOLUME 94.7 fl (80.0-96.0); MONO # 0.6 10^3/uL (0.0-0.8); MONO % 9.4 % (2.0-8.0); NEUTROPHILS # 5.2 10^3/uL (1.5-8.5); NEUTROPHILS % 81.6 % (36.0-66.0); PLATELET COUNT, AUTOMATED 202 10^3/uL (150-450); RED BLOOD COUNT 4.16 10^6/uL (4.30-6.10); WHITE BLOOD COUNT 6.4 10^3/uL (4.0-10.0)
[2023-11-08 17:57] LABS: BLOOD UREA NITROGEN 18 MG/DL (9-23); CALCIUM LEVEL 9.5 MG/DL (8.3-10.6); CARBON DIOXIDE LEVEL 26 MMOL/L (20-31); CHLORIDE LEVEL 108 MMOL/L (98-107); CREATININE FOR GFR 0.69 MG/DL (0.70-1.30); GLOMERULAR FILTRATION RATE > 60.0 (>42); GLUCOSE, FASTING 98 MG/DL (74-106); POTASSIUM SERUM 3.7 MMOL/L (3.5-5.1); SODIUM LEVEL 138 MMOL/L (136-145)
[2023-11-08 18:08] VITALS: BP 161/76; TEMP 96.9; O2SAT 97
[2023-11-08] MEDS ORDERED: CIPR-249 PO (19:03)
[2023-11-08] MEDS: CIPROFLOXACIN 500MG TABLET PO ONE (19:05)
== END 2023-11-08 19:51 | disposition home or self-care (01) ==
LOC: M ED 12:40
DX: T83.098A Other mechanical complication of other urinary catheter, initial encounter (principal); N39.0 Urinary tract infection, site not specified; K58.9 Irritable bowel syndrome, unspecified; R55 Syncope and collapse; E85.9 Amyloidosis, unspecified; Z91.041 Radiographic dye allergy status; Z79.52 Long term (current) use of systemic steroids; Z79.2 Long term (current) use of antibiotics; Z79.899 Other long term (current) drug therapy

== ENCOUNTER 2023-12-15 15:33 | Emergency (ER) | payer MEDICARE ==
[~2023-12-15] VITALS: Ht 185.4 cm; Wt 82.8 kg
[2023-12-15] MEDS ORDERED: AVOD0.5C (15:41)
[2023-12-15] MEDS: LIDOCAINE 2% 5ML JELLY UROJET TOP ONE (16:35)
[2023-12-15 17:47] VITALS: BP 130/57; TEMP 97.9; O2SAT 96
[2023-12-15] MEDS ORDERED: LEVO1TAB40 PO (17:48)
== END 2023-12-15 18:20 | disposition home or self-care (01) ==
LOC: M ED 15:33
DX: T83.098A Other mechanical complication of other urinary catheter, initial encounter (principal); N39.0 Urinary tract infection, site not specified; R33.9 Retention of urine, unspecified; Z91.041 Radiographic dye allergy status; Z86.711 Personal history of pulmonary embolism; Z79.52 Long term (current) use of systemic steroids; Z79.899 Other long term (current) drug therapy

== ENCOUNTER → 2024-02-27 | Outpatient (CLI) | payer MEDICARE ==
[~2024-02-27] MED LIST changes: +AVOD0.5C
== END ==
LOC: M WUC 13:57
PROVIDERS: ATTEND Internal Medicine Pulmonary Disease
DX: E85.4 Organ-limited amyloidosis (principal); J98.11 Atelectasis

== ENCOUNTER 2024-03-06 21:03 | Inpatient (IN) | payer MEDICARE ==
[~2024-03-06] VITALS: Ht 185.4 cm; Wt 79.6 kg
[~2024-03-06 21:03] MED LIST changes: -AMOX500T2 PO; -AVOD0.5C PO; -EMER1PAK30 PO; -SODI88SP NARES; -XARE20TA PO
[2024-03-06] MEDS: methylPREDNISolone 125MG 2ML VIAL IV ONE (21:57)
[2024-03-06 22:02] LABS: BASO % 0.5 % (0.0-1.0); EOS # 0.1 10^3/uL (0.0-0.5); EOS % 1.3 % (0.0-3.0); HEMATOCRIT 40.1 % (42.0-52.0); HEMOGLOBIN 12.5 g/dl (13.5-17.5); LYMPH # 0.3 10^3/uL (1.5-5.0); LYMPH % 8.4 % (24.0-44.0); MEAN CORPUSCULAR HEMOGLOBIN 29.3 pg (27.0-33.0); MEAN CORPUSCULAR HGB CONC 31.2 g/dl (32.0-36.5); MEAN CORPUSCULAR VOLUME 93.9 fl (80.0-96.0); MONO # 0.6 10^3/uL (0.0-0.8); MONO % 15.3 % (2.0-8.0); NEUTROPHILS # 2.9 10^3/uL (1.5-8.5); NEUTROPHILS % 74.2 % (36.0-66.0); PLATELET COUNT, AUTOMATED 159 10^3/uL (150-450); RED BLOOD COUNT 4.27 10^6/uL (4.30-6.10); WHITE BLOOD COUNT 3.9 10^3/uL (4.0-10.0)
[2024-03-06] MEDS: ALBUTEROL SULFATE 2.5MG/0.5ML INH NEB SOLN NEB ONE (22:02)
[2024-03-06] MEDS: IPRATROPIUM 0.5MG/ALBUTEROL 2.5MG INH SOL UD 3ML (DUONEB) NEB ONE (22:04)
[2024-03-06 22:37] LABS: ALBUMIN 3.6 G/DL (3.2-5.2); ALKALINE PHOSPHATASE 71 U/L (40-129); ALT/SGPT 20 U/L (7.0-40); AST/SGOT 22 U/L (<34); BILIRUBIN,DIRECT 0.3 MG/DL (<0.4); BILIRUBIN,TOTAL 0.9 MG/DL (0.3-1.2); BLOOD UREA NITROGEN 18 MG/DL (9-23); CALCIUM LEVEL 9.3 MG/DL (8.3-10.6); CARBON DIOXIDE LEVEL 28 MMOL/L (20-31); CHLORIDE LEVEL 100 MMOL/L (98-107); CREATININE FOR GFR 0.66 MG/DL (0.70-1.30); GLOMERULAR FILTRATION RATE > 60.0 (>42); GLUCOSE, FASTING 105 MG/DL (74-106); SODIUM LEVEL 136 MMOL/L (136-145)
[2024-03-06 22:40] LABS: THYROXINE (T4) 7.8 UG/DL (4.5-10.9)
[2024-03-06 22:41] LABS: THYROID STIMULATING HORMONE 0.696 uIU/ML (0.55-4.78)
[2024-03-07] MEDS ORDERED: ACETAMINOPHEN 325 MG TAB PO PRN
[2024-03-07] MEDS ORDERED: MOM 30ML SUSPENSION UDC PO PRN
[2024-03-07] MEDS ORDERED: AMOX500T2 PO (00:15)
[2024-03-07] MEDS ORDERED: XARE20TA PO (00:15)
[2024-03-07] MEDS ORDERED: AVOD0.5C PO (00:15)
[2024-03-07] MEDS ORDERED: EMER1PAK30 PO (00:17)
[2024-03-07] MEDS ORDERED: SODI88SP NARES (00:17)
[2024-03-07] MEDS ORDERED: HOME MED LIST COMPLETE! XX SCH (00:20)
[2024-03-07 00:35] LABS: PROCALCITONIN 0.09 ng/ml
[2024-03-07] MEDS: IPRATROPIUM 0.5MG/ALBUTEROL 2.5MG INH SOL UD 3ML (DUONEB) NEB SCH (00:37)
[2024-03-07] MEDS ORDERED: cefTRIAXone SOD 2GM VIAL IM SCH (00:45)
[2024-03-07] MEDS ORDERED: ALBUTEROL 90 MCG/ACT 8GM HFA INHALER INH PRN (01:20)
[2024-03-07] MEDS ORDERED: SODIUM CHLORIDE NASAL 0.65% SPRAY BTL (OCEAN) PRN (01:20)
[2024-03-07] MEDS: AZITHROMYCIN 250MG TABLET PO SCH (01:43)
[2024-03-07] MEDS: cefTRIAXone SOD 2 GM in DEXTROSE 5% (D5W) ADV/MINI-BAG 50 ML IV SCH (01:45)
[2024-03-07] MEDS: DUTASTERIDE 0.5 MG CAP (AVODART) PO SCH (02:23)
[2024-03-07 02:49] VITALS: BP 145/93; TEMP 97.3; O2SAT 94
[2024-03-07] MEDS: methylPREDNISolone 125MG 2ML VIAL IV SCH (06:00)
[2024-03-07 06:17] LABS: HEMATOCRIT 38.6 % (42.0-52.0); LYMPH # 0.1 10^3/uL (1.5-5.0); MEAN CORPUSCULAR HEMOGLOBIN 29.7 pg (27.0-33.0); MEAN CORPUSCULAR HGB CONC 31.1 g/dl (32.0-36.5); MEAN CORPUSCULAR VOLUME 95.5 fl (80.0-96.0); MONO # 0.1 10^3/uL (0.0-0.8); MONO % 2.2 % (2.0-8.0); NEUTROPHILS # 2.6 10^3/uL (1.5-8.5); NEUTROPHILS % 92.4 % (36.0-66.0); PLATELET COUNT, AUTOMATED 155 10^3/uL (150-450); RED BLOOD COUNT 4.04 10^6/uL (4.30-6.10); WHITE BLOOD COUNT 2.8 10^3/uL (4.0-10.0)
[2024-03-07 06:30] LABS: ALBUMIN 3.3 G/DL (3.2-5.2); ALKALINE PHOSPHATASE 66 U/L (40-129); ALT/SGPT 20 U/L (7.0-40); AST/SGOT 19 U/L (<34); BILIRUBIN,TOTAL 0.4 MG/DL (0.3-1.2); BLOOD UREA NITROGEN 15 MG/DL (9-23); CALCIUM LEVEL 9.4 MG/DL (8.3-10.6); CARBON DIOXIDE LEVEL 29 MMOL/L (20-31); CHLORIDE LEVEL 101 MMOL/L (98-107); CREATININE FOR GFR 0.59 MG/DL (0.70-1.30); GLOMERULAR FILTRATION RATE > 60.0 (>42); GLUCOSE, FASTING 148 MG/DL (74-106); SODIUM LEVEL 140 MMOL/L (136-145); TOTAL PROTEIN 7.6 G/DL (5.7-8.2)
[2024-03-07 07:20] VITALS: O2SAT 98
[2024-03-07] MEDS ORDERED: DOXYCYCLINE HYCLATE 100MG TABLET PO SCH (09:00)
[2024-03-07 11:13] VITALS: O2SAT 96
[2024-03-07 13:31] VITALS: BP 140/73; TEMP 98.1; O2SAT 95
[2024-03-07] MEDS: RIVAROXABAN 20MG TAB (XARELTO) PO SCH (17:02)
[2024-03-07 20:36] VITALS: BP 127/57; TEMP 98.2; O2SAT 97
[2024-03-07] MEDS: guaiFENesin ER TABLET 600 MG TAB PO SCH (21:10)
[2024-03-07] MEDS: TAMSULOSIN 0.4 MG CAP PO SCH (21:11)
[2024-03-08 04:33] VITALS: BP 122/69; TEMP 98.1; O2SAT 95
[2024-03-08 11:41] VITALS: O2SAT 97
[2024-03-08 13:04] VITALS: BP 127/70; TEMP 98.1; O2SAT 94
[2024-03-08 20:15] VITALS: BP 129/79; TEMP 98.1; O2SAT 94
[2024-03-09 04:33] VITALS: BP 129/65; TEMP 98.1; O2SAT 93
[2024-03-09 08:08] VITALS: O2SAT 94
[2024-03-09 10:13] LABS: EOS % 0.1 % (0.0-3.0); HEMATOCRIT 40.9 % (42.0-52.0); HEMOGLOBIN 12.7 g/dl (13.5-17.5); LYMPH # 0.3 10^3/uL (1.5-5.0); LYMPH % 4.6 % (24.0-44.0); MEAN CORPUSCULAR HEMOGLOBIN 29.8 pg (27.0-33.0); MEAN CORPUSCULAR HGB CONC 31.1 g/dl (32.0-36.5); MONO # 0.2 10^3/uL (0.0-0.8); MONO % 2.7 % (2.0-8.0); NEUTROPHILS # 6.4 10^3/uL (1.5-8.5); NEUTROPHILS % 92.2 % (36.0-66.0); PLATELET COUNT, AUTOMATED 211 10^3/uL (150-450); RED BLOOD COUNT 4.26 10^6/uL (4.30-6.10); WHITE BLOOD COUNT 6.9 10^3/uL (4.0-10.0)
[2024-03-09] MEDS: metOLazone 5 MG TAB PO ONE (10:19)
[2024-03-09 10:20] VITALS: BP 120/68
[2024-03-09 10:39] LABS: BLOOD UREA NITROGEN 20 MG/DL (9-23); CALCIUM LEVEL 9.6 MG/DL (8.3-10.6); CARBON DIOXIDE LEVEL 29 MMOL/L (20-31); CHLORIDE LEVEL 105 MMOL/L (98-107); CREATININE FOR GFR 0.54 MG/DL (0.70-1.30); GLOMERULAR FILTRATION RATE > 60.0 (>42); GLUCOSE, FASTING 153 MG/DL (74-106); SODIUM LEVEL 141 MMOL/L (136-145)
[2024-03-09] MEDS: FUROSEMIDE 40MG/4ML VIAL IV ONE (11:00)
[2024-03-09 11:01] VITALS: BP 152/79
[2024-03-09 12:36] VITALS: BP 137/76; TEMP 98.1; O2SAT 93
[2024-03-09 19:35] VITALS: BP 123/68; TEMP 97.9; O2SAT 95
[2024-03-10 04:00] VITALS: BP 128/61; TEMP 97.9; O2SAT 95
[2024-03-10 14:07] VITALS: BP 112/71; O2SAT 95
[2024-03-10 17:18] LABS: URINE STREP PNEUMONIAE ANTIGEN NOT DETECTED (NOT DETECT)
[2024-03-10 19:45] VITALS: BP 106/71; TEMP 98.1; O2SAT 95
[2024-03-10 20:32] LABS: BASO % 0.1 % (0.0-1.0); HEMOGLOBIN 13.6 g/dl (13.5-17.5); LYMPH # 0.3 10^3/uL (1.5-5.0); LYMPH % 3.8 % (24.0-44.0); MEAN CORPUSCULAR HEMOGLOBIN 29.8 pg (27.0-33.0); MEAN CORPUSCULAR HGB CONC 31.6 g/dl (32.0-36.5); MEAN CORPUSCULAR VOLUME 94.1 fl (80.0-96.0); MONO # 0.4 10^3/uL (0.0-0.8); MONO % 4.9 % (2.0-8.0); NEUTROPHILS # 8.2 10^3/uL (1.5-8.5); PLATELET COUNT, AUTOMATED 244 10^3/uL (150-450); RED BLOOD COUNT 4.57 10^6/uL (4.30-6.10); WHITE BLOOD COUNT 9.1 10^3/uL (4.0-10.0)
[2024-03-10 20:58] LABS: BLOOD UREA NITROGEN 31 MG/DL (9-23); CALCIUM LEVEL 9.2 MG/DL (8.3-10.6); CARBON DIOXIDE LEVEL 36 MMOL/L (20-31); CHLORIDE LEVEL 96 MMOL/L (98-107); CREATININE FOR GFR 0.68 MG/DL (0.70-1.30); GLOMERULAR FILTRATION RATE > 60.0 (>42); GLUCOSE, FASTING 249 MG/DL (74-106); SODIUM LEVEL 137 MMOL/L (136-145)
[2024-03-10] MEDS: CEFDINIR 300 MG CAP (OMNICEF) PO SCH (21:04)
[2024-03-11 04:21] VITALS: BP 126/60; TEMP 98.2; O2SAT 94
[2024-03-11 09:41] LABS: BASO % 0.1 % (0.0-1.0); HEMATOCRIT 44.5 % (42.0-52.0); LYMPH # 0.3 10^3/uL (1.5-5.0); MEAN CORPUSCULAR HEMOGLOBIN 29.9 pg (27.0-33.0); MEAN CORPUSCULAR HGB CONC 31.5 g/dl (32.0-36.5); MEAN CORPUSCULAR VOLUME 94.9 fl (80.0-96.0); MONO # 0.2 10^3/uL (0.0-0.8); MONO % 2.4 % (2.0-8.0); NEUTROPHILS # 8.2 10^3/uL (1.5-8.5); NEUTROPHILS % 94.2 % (36.0-66.0); PLATELET COUNT, AUTOMATED 229 10^3/uL (150-450); RED BLOOD COUNT 4.69 10^6/uL (4.30-6.10); WHITE BLOOD COUNT 8.7 10^3/uL (4.0-10.0)
[2024-03-11 10:19] LABS: BLOOD UREA NITROGEN 27 MG/DL (9-23); CALCIUM LEVEL 9.2 MG/DL (8.3-10.6); CARBON DIOXIDE LEVEL 33 MMOL/L (20-31); CHLORIDE LEVEL 94 MMOL/L (98-107); CREATININE FOR GFR 0.58 MG/DL (0.70-1.30); GLOMERULAR FILTRATION RATE > 60.0 (>42); GLUCOSE, FASTING 262 MG/DL (74-106); POTASSIUM SERUM 3.7 MMOL/L (3.5-5.1); SODIUM LEVEL 136 MMOL/L (136-145)
[2024-03-11 12:00] VITALS: BP 122/68; TEMP 98.1; O2SAT 93
[2024-03-11] MEDS: methylPREDNISolone 125MG 2ML VIAL IV SCH (17:28)
[2024-03-11 19:39] VITALS: BP 124/63; TEMP 98.2; O2SAT 95
[2024-03-12 04:21] VITALS: BP 133/76; TEMP 97.9; O2SAT 97
[2024-03-12 08:26] LABS: HEMATOCRIT 42.7 % (42.0-52.0); HEMOGLOBIN 13.6 g/dl (13.5-17.5); LYMPH # 0.5 10^3/uL (1.5-5.0); LYMPH % 6.6 % (24.0-44.0); MEAN CORPUSCULAR HEMOGLOBIN 29.8 pg (27.0-33.0); MEAN CORPUSCULAR HGB CONC 31.9 g/dl (32.0-36.5); MEAN CORPUSCULAR VOLUME 93.6 fl (80.0-96.0); MONO # 0.5 10^3/uL (0.0-0.8); MONO % 6.6 % (2.0-8.0); NEUTROPHILS # 6.9 10^3/uL (1.5-8.5); NEUTROPHILS % 86.6 % (36.0-66.0); PLATELET COUNT, AUTOMATED 231 10^3/uL (150-450); RED BLOOD COUNT 4.56 10^6/uL (4.30-6.10)
[2024-03-12 08:53] LABS: BLOOD UREA NITROGEN 28 MG/DL (9-23); CALCIUM LEVEL 9.6 MG/DL (8.3-10.6); CARBON DIOXIDE LEVEL 34 MMOL/L (20-31); CHLORIDE LEVEL 97 MMOL/L (98-107); CREATININE FOR GFR 0.63 MG/DL (0.70-1.30); GLOMERULAR FILTRATION RATE > 60.0 (>42); GLUCOSE, FASTING 123 MG/DL (74-106); POTASSIUM SERUM 4.1 MMOL/L (3.5-5.1); SODIUM LEVEL 138 MMOL/L (136-145)
[2024-03-12 12:00] VITALS: BP 136/67; TEMP 98.1; O2SAT 93
[2024-03-12] MEDS: ADVAIR HFA 230/21MCG INHALER INH SCH (13:44)
[2024-03-12 20:39] VITALS: BP 122/78; TEMP 97.3; O2SAT 94
[2024-03-13 04:55] VITALS: BP 115/53; TEMP 98.1; O2SAT 95
[2024-03-13 06:12] LABS: BASO % 0.1 % (0.0-1.0); HEMATOCRIT 43.2 % (42.0-52.0); HEMOGLOBIN 13.4 g/dl (13.5-17.5); LYMPH # 0.4 10^3/uL (1.5-5.0); LYMPH % 4.9 % (24.0-44.0); MEAN CORPUSCULAR HEMOGLOBIN 29.1 pg (27.0-33.0); MEAN CORPUSCULAR VOLUME 93.7 fl (80.0-96.0); MONO # 0.6 10^3/uL (0.0-0.8); MONO % 6.9 % (2.0-8.0); NEUTROPHILS # 7.9 10^3/uL (1.5-8.5); NEUTROPHILS % 87.7 % (36.0-66.0); PLATELET COUNT, AUTOMATED 284 10^3/uL (150-450); RED BLOOD COUNT 4.61 10^6/uL (4.30-6.10); WHITE BLOOD COUNT 9.1 10^3/uL (4.0-10.0)
[2024-03-13 06:40] LABS: BLOOD UREA NITROGEN 30 MG/DL (9-23); CALCIUM LEVEL 9.3 MG/DL (8.3-10.6); CARBON DIOXIDE LEVEL 33 MMOL/L (20-31); CHLORIDE LEVEL 99 MMOL/L (98-107); CREATININE FOR GFR 0.59 MG/DL (0.70-1.30); GLOMERULAR FILTRATION RATE > 60.0 (>42); GLUCOSE, FASTING 134 MG/DL (74-106); POTASSIUM SERUM 4.5 MMOL/L (3.5-5.1); SODIUM LEVEL 138 MMOL/L (136-145)
[2024-03-13 12:35] VITALS: BP 155/80; TEMP 98.2; O2SAT 93
[2024-03-13 19:54] VITALS: BP 120/73; TEMP 98.2; O2SAT 95
[2024-03-13 20:05] VITALS: O2SAT 86
[2024-03-14 04:00] VITALS: BP 133/69; TEMP 97.9; O2SAT 97
[2024-03-14 06:53] LABS: BASO % 0.1 % (0.0-1.0); EOS % 0.1 % (0.0-3.0); HEMATOCRIT 43.3 % (42.0-52.0); HEMOGLOBIN 13.2 g/dl (13.5-17.5); LYMPH # 0.6 10^3/uL (1.5-5.0); LYMPH % 5.1 % (24.0-44.0); MEAN CORPUSCULAR HGB CONC 30.5 g/dl (32.0-36.5); MEAN CORPUSCULAR VOLUME 95.2 fl (80.0-96.0); MONO % 7.9 % (2.0-8.0); NEUTROPHILS # 10.8 10^3/uL (1.5-8.5); NEUTROPHILS % 86.2 % (36.0-66.0); PLATELET COUNT, AUTOMATED 305 10^3/uL (150-450); RED BLOOD COUNT 4.55 10^6/uL (4.30-6.10); WHITE BLOOD COUNT 12.5 10^3/uL (4.0-10.0)
[2024-03-14 07:17] LABS: BLOOD UREA NITROGEN 34 MG/DL (9-23); CALCIUM LEVEL 9.1 MG/DL (8.3-10.6); CARBON DIOXIDE LEVEL 32 MMOL/L (20-31); CHLORIDE LEVEL 103 MMOL/L (98-107); CREATININE FOR GFR 0.58 MG/DL (0.70-1.30); GLOMERULAR FILTRATION RATE > 60.0 (>42); GLUCOSE, FASTING 120 MG/DL (74-106); POTASSIUM SERUM 4.8 MMOL/L (3.5-5.1); SODIUM LEVEL 138 MMOL/L (136-145)
[2024-03-14] MEDS ORDERED: PRED10TA2 PO (10:25)
[2024-03-14] MEDS ORDERED: MUCI600T31 PO (10:25)
[2024-03-14] MEDS ORDERED: ADVA230A INH (10:25)
[2024-03-14 12:32] VITALS: BP 113/76; TEMP 98.2; O2SAT 94
[2024-03-14 13:52] LABS: MYCOPLASMA PNEUMONIAE IGG 2.88 (<=0.90)
== END 2024-03-14 14:57 | disposition home or self-care (01) | DRG 193 ==
LOC: EDBD 21:03 → M ED 21:03 → M ED INP 03-07 00:49 → EEVIPCON 03-07 00:49 → M MS5PR 03-07 02:41
PROVIDERS: ADMIT Student in an Organized Health Care Education/Training Program; ATTEND Internal Medicine Nephrology
DX: J12.1 Respiratory syncytial virus pneumonia (principal); J96.01 Acute respiratory failure with hypoxia; E85.4 Organ-limited amyloidosis; J15.9 Unspecified bacterial pneumonia; N40.0 Benign prostatic hyperplasia without lower urinary tract symptoms; Z86.711 Personal history of pulmonary embolism; G47.33 Obstructive sleep apnea (adult) (pediatric); Z92.3 Personal history of irradiation; Z86.718 Personal history of other venous thrombosis and embolism; J99 Respiratory disorders in diseases classified elsewhere; K58.9 Irritable bowel syndrome, unspecified; Z91.040 Latex allergy status; Z79.899 Other long term (current) drug therapy

== ENCOUNTER → 2024-03-06 | Outpatient (REF) | payer MEDICARE ==
[~2024-03-06] MED LIST changes: -ALBU8.5H; +ALBU8.5H INH; +AMOX500T2 PO; +AVOD0.5C PO; +EMER1PAK30 PO; -IPRA0.00; +IPRA0.00 INH; +SODI88SP NARES; +XARE20TA PO
== END ==
LOC: M LAB REF 12:56
PROVIDERS: ATTEND Internal Medicine Pulmonary Disease
DX: J18.0 Bronchopneumonia, unspecified organism (principal)

== ENCOUNTER 2024-06-03 17:02 | Emergency (ER) | payer MEDICARE ==
[~2024-06-03] VITALS: Ht 185.4 cm; Wt 86.2 kg
[~2024-06-03 17:02] MED LIST changes: +ADVA230A INH; +AMOX500T2 PO; +AVOD0.5C PO; +EMER1PAK30 PO; +MUCI600T31 PO; +PRED10TA2 PO; +SODI88SP NARES; +XARE20TA PO
[2024-06-03 17:13] VITALS: TEMP 99.2
[2024-06-03 22:28] LABS: BASO % 0.7 % (0.0-1.0); EOS # 0.1 10^3/uL (0.0-0.5); EOS % 2.6 % (0.0-3.0); HEMATOCRIT 37.7 % (42.0-52.0); HEMOGLOBIN 11.7 g/dl (13.5-17.5); LYMPH # 0.7 10^3/uL (1.5-5.0); LYMPH % 13.3 % (24.0-44.0); MEAN CORPUSCULAR VOLUME 96.7 fl (80.0-96.0); MONO # 0.6 10^3/uL (0.0-0.8); MONO % 11.3 % (2.0-8.0); NEUTROPHILS # 3.9 10^3/uL (1.5-8.5); NEUTROPHILS % 71.9 % (36.0-66.0); PLATELET COUNT, AUTOMATED 175 10^3/uL (150-450); WHITE BLOOD COUNT 5.5 10^3/uL (4.0-10.0)
[2024-06-03 23:00] LABS: BLOOD UREA NITROGEN 17 MG/DL (9-23); CALCIUM LEVEL 8.7 MG/DL (8.3-10.6); CARBON DIOXIDE LEVEL 28 MMOL/L (20-31); CHLORIDE LEVEL 104 MMOL/L (98-107); CREATININE FOR GFR 0.62 MG/DL (0.70-1.30); GLOMERULAR FILTRATION RATE > 90.0 (>42); GLUCOSE, FASTING 94 MG/DL (74-106); SODIUM LEVEL 140 MMOL/L (136-145)
[2024-06-03 23:30] VITALS: BP 136/68; O2SAT 94
[2024-06-04] MEDS ORDERED: LIDO5DIS41 TD (00:11)
[2024-06-04 00:14] VITALS: O2SAT 94
== END 2024-06-04 00:23 | disposition home or self-care (01) ==
LOC: M ED 17:02
DX: J98.4 Other disorders of lung (principal); E85.9 Amyloidosis, unspecified; J98.19 Other pulmonary collapse; Z86.718 Personal history of other venous thrombosis and embolism; N40.0 Benign prostatic hyperplasia without lower urinary tract symptoms; Z91.041 Radiographic dye allergy status; K58.9 Irritable bowel syndrome, unspecified; Z79.01 Long term (current) use of anticoagulants; R91.8 Other nonspecific abnormal finding of lung field; Z79.899 Other long term (current) drug therapy

== ENCOUNTER 2024-06-21 15:41 | Emergency (ER) | payer MEDICARE ==
[~2024-06-21] VITALS: Ht 185.4 cm; Wt 82.7 kg
[~2024-06-21 15:41] MED LIST changes: +LIDO5DIS41 TD
[2024-06-21 17:40] VITALS: BP 169/89; TEMP 96.9; O2SAT 97
== END 2024-06-21 18:18 | disposition home or self-care (01) ==
LOC: M ED 15:41
DX: T83.091A Other mechanical complication of indwelling urethral catheter, initial encounter (principal); N40.0 Benign prostatic hyperplasia without lower urinary tract symptoms; Z79.52 Long term (current) use of systemic steroids; Z79.899 Other long term (current) drug therapy; Z91.041 Radiographic dye allergy status

== ENCOUNTER 2024-06-22 23:49 | Emergency (ER) | payer MEDICARE ==
[~2024-06-22] VITALS: Ht 185.4 cm; Wt 83.4 kg
[~2024-06-22 23:49] MED LIST changes: +LIDO1ADH93 TD; -LIDO5DIS41 TD
[2024-06-23 03:31] VITALS: BP 135/76; TEMP 98.2; O2SAT 96
== END 2024-06-23 03:43 | disposition home or self-care (01) ==
LOC: M ED 23:49
DX: T83.091A Other mechanical complication of indwelling urethral catheter, initial encounter (principal); N40.0 Benign prostatic hyperplasia without lower urinary tract symptoms; Z86.711 Personal history of pulmonary embolism; Z91.041 Radiographic dye allergy status; Z79.52 Long term (current) use of systemic steroids; Z79.899 Other long term (current) drug therapy

== ENCOUNTER 2024-10-28 16:48 | Emergency (ER) | payer MEDICARE ==
[~2024-10-28] VITALS: Ht 185.4 cm; Wt 76.8 kg
[2024-10-28 19:13] VITALS: TEMP 97.2
[2024-10-28] MEDS: LIDOCAINE 2% 5 ML JELLY UROJET TOP ONE (22:23)
[2024-10-28 23:00] VITALS: BP 112/55; O2SAT 95
== END 2024-10-28 23:20 | disposition home or self-care (01) ==
LOC: M ED 16:48
DX: T83.091A Other mechanical complication of indwelling urethral catheter, initial encounter (principal); N40.1 Benign prostatic hyperplasia with lower urinary tract symptoms; K58.9 Irritable bowel syndrome, unspecified; Z91.041 Radiographic dye allergy status; Z86.718 Personal history of other venous thrombosis and embolism; Z79.01 Long term (current) use of anticoagulants; Z79.52 Long term (current) use of systemic steroids; Z79.899 Other long term (current) drug therapy

== ENCOUNTER 2024-11-12 20:10 | Emergency (ER) | payer MEDICARE ==
[~2024-11-12] VITALS: Ht 185.4 cm; Wt 81.2 kg
[2024-11-12] MEDS: LIDOCAINE 2% 5 ML JELLY UROJET TOP ONE (22:20)
[2024-11-13 00:17] VITALS: BP 133/78; TEMP 97.6; O2SAT 94
== END 2024-11-13 00:19 | disposition home or self-care (01) ==
LOC: M ED 20:10
DX: T83.091A Other mechanical complication of indwelling urethral catheter, initial encounter (principal); E85.9 Amyloidosis, unspecified; Z91.041 Radiographic dye allergy status; Z79.52 Long term (current) use of systemic steroids; Z79.899 Other long term (current) drug therapy

== ENCOUNTER 2024-12-17 12:52 | Emergency (ER) | payer MEDICARE ==
[~2024-12-17] VITALS: Ht 185.4 cm; Wt 80.2 kg
[2024-12-17 14:17] LABS: BASO # 0.0 10^3/uL (0.0-0.2); BASO % 0.5 % (0.0-1.0); EOS # 0.2 10^3/uL (0.0-0.5); EOS % 1.9 % (0.0-3.0); LYMPH # 0.6 10^3/uL (1.5-5.0); LYMPH % 8.1 % (24.0-44.0); MONO # 0.7 10^3/uL (0.0-0.8); MONO % 8.6 % (2.0-8.0); NEUTROPHILS # 6.4 10^3/uL (1.5-8.5); NEUTROPHILS % 80.5 % (36.0-66.0); PLATELET COUNT, AUTOMATED 269 10^3/uL (150-450)
[2024-12-17 14:24] LABS: KETONE, URINE AUTO RFX NEGATIVE (NEGATIVE); MUCUS, URINE RFX SMALL (NEGATIVE); RBC, URINE AUTO RFX 170 /HPF (0-3); SQUAM EPITHELIAL CELL UR AURFX 2 /HPF (0-6)
[2024-12-17 14:25] LABS: LEUKOCYTE ESTERASE UR AUTO RFX 2+ (NEGATIVE); NITRITE, URINE AUTO RFX POSITIVE (NEGATIVE); WBC, URINE AUTO RFX TNTC /HPF (0-3)
[2024-12-17 14:33] LABS: ALT/SGPT 25 U/L (7.0-40); AST/SGOT 24 U/L (<34); CALCIUM LEVEL 8.8 MG/DL (8.3-10.6); CARBON DIOXIDE LEVEL 28 MMOL/L (20-31); CHLORIDE LEVEL 104 MMOL/L (98-107); CREATININE FOR GFR 0.64 MG/DL (0.70-1.30); GLOMERULAR FILTRATION RATE > 90.0 (>42); POTASSIUM SERUM 3.8 MMOL/L (3.5-5.1); SODIUM LEVEL 139 MMOL/L (136-145)
[2024-12-17] MEDS ORDERED: CIPR500T39 PO (15:04)
[2024-12-17] MEDS: LIDOCAINE 2% 5 ML JELLY UROJET TOP ONE (15:44)
[2024-12-17 16:05] VITALS: BP 162/74; TEMP 98.2; O2SAT 96
== END 2024-12-17 16:06 | disposition home or self-care (01) ==
LOC: M ED 12:52
DX: N39.0 Urinary tract infection, site not specified (principal); N40.1 Benign prostatic hyperplasia with lower urinary tract symptoms; Z91.041 Radiographic dye allergy status; Z79.52 Long term (current) use of systemic steroids; Z79.899 Other long term (current) drug therapy; Z79.2 Long term (current) use of antibiotics

== ENCOUNTER → 2024-12-24 | Outpatient (CLI) | payer MEDICARE ==
[~2024-12-24] MED LIST changes: +CIPR500T39 PO
== END ==
LOC: M RAD 10:49
PROVIDERS: ATTEND Nurse Practitioner Adult Health
DX: M79.605 Pain in left leg (principal); R60.0 Localized edema